=== PATIENT | male | born 1975 | race Caucasian/White ===

== ENCOUNTER → 2018-11-18 | Outpatient (CLI) | payer OTHER ==
--- NOTE | 2018-11-18 11:39 | ECHOF ---
Referral Reason:R07.89chest pain E03.9 Hypothyroidism MEASUREMENTS -------- HEIGHT: 182.9 cm WEIGHT: 144.2 kg BP: RVIDd: 3.5 cm (< 3.3) IVSd: 1.5 cm (0.6 - 1.1) LVIDd: 4.4 cm (3.9 - 5.3) LVPWd: 1.8 cm (0.6 - 1.1) IVSs: 1.9 cm LVIDs: 3.4 cm LVPWs: 1.3 cm LA Diam: 3.9 cm (2.7 - 3.8) LAESV Index (A-L): 26.37 ml/m Ao Diam: 3.7 cm (2.0 - 3.7) AV Cusp: 2.4 cm (1.5 - 2.6) LA Diam: 3.7 cm (2.7 - 3.8) MV EXCURSION: 23.601 mm (> 18.000) MV EF SLOPE: 115 mm/s (70 - 150) EPSS: 0.3 cm MV E Denis: 0.69 m/s MV DecT: 153 ms MV A Denis: 0.74 m/s MV E/A Ratio: 0.94 RAP: 5.00 mmHg RVSP: 21.84 mmHg FINDINGS -------- Sinus rhythm. Morbid Obesity The left ventricular size is normal. There is moderate concentric left ventricular hypertrophy. O verall left ventricular systolic function is low-normal with, an EF between 50 - 55 %. The right ventricle is mild to moderately enlarged. The left atrial size is normal. Normal LA size by volume 22+/-6 ml/m2. The right atrial size is normal. The aortic valve is trileaflet, and appears structurally normal. No aortic stenosis or regurgitation. Mild mitral annular calcification present. Mild mitral regurgitation is present. Mild tricuspid regurgitation present. There is no evidence of pulmonary hypertension. The right v entricular systolic pressure, as measured by Doppler, is 21.84mmHg. There is no pulmonic regurgitation present. The aortic root size is normal. There is no pericardial effusion. CONCLUSIONS -------- 1. Morbid Obesity 2. The left ventricular size is normal. 3. There is moderate concentric left ventricular hypertrophy. 4. Overall left ventricular systolic function is low-normal with, an EF between 50 - 55 %. 5. The right ventricle is mild to moderately enlarged. 6. The left atrial size is normal. 7. Normal LA size by volume 22+/-6 ml/m2. 8. The right atrial size is normal. 9. The aortic valve is trileaflet, and appears structurally normal. No aortic stenosis or regurgitati on. 10. Mild mitral annular calcification present. 11. Mild mitral regurgitation is present. 12. Mild tricuspid regurgitation present. 13. There is no evidence of pulmonary hypertension. 14. The right ventricular systolic pressure, as measured by Doppler, is 21.84mmHg. 15. There is no pulmonic regurgitation present. 16. The aortic root size is normal. 17. There is no pericardial effusion. FLIGHT ENGINEER [employer]ICOPTER: Ashley Jang RDCS
--- NOTE | 2018-11-18 12:53 | NM ---
EXAMINATION TYPE: NM stress cardiolite complete DATE OF EXAM: 11/18/2018 COMPARISON: NONE HISTORY: Precordial chest pain and abnormal EKG TECHNIQUE: After the intravenous administration of 10.05 mCi Tc 99m Sestamibi - Rest images obtained 45 minutes post injection. The patient exercised using a RANDOLPH protocol and 1 minute prior to peak exercise was injected with 26 mCi Tc 99m Sestamibi - Stress images obtained 10 minutes post injectio n. FINDINGS: Targeted heart rate was achieved during performance of the study. Review of stress and rest SPECT viktor ges demonstrates small area of reversible ischemia involving the cardiac septum near the base. Gated analysis shows normal wall motion with an estimated left ventricular ejection fraction of 50 %. IMPRESSION: Small area reversibility ischemia, cardiac septum as noted.
--- NOTE | 2018-11-18 13:37 | EST ---
EXERCISE STRESS DATE OF SERVICE: 11/18/2018 AGE: 43 SEX: Male HT: 6 feet WT: 324 pounds PROTOCOL: Cardiolite Tayo STAGE: III DURATION OF EXERCISE: 9 minutes HEART RATE REST: 88 BLOOD PRESSURE REST: 129/65 MAXIMUM HEART RATE ACHIEVED: 160 MAXIMUM BLOOD PRESSURE: 208/101 85% MPHR: 149 100% MPHR: 175 METS: 10.5 INDICATIONS: Chest pain. CLINICAL INFORMATION: STRESS DATA: Pretesting physical examination showed heart rate of 88, pressure is 129/65 mmHg. Baseline EKG showed sinus mechanism. The patient exercised on treadmill according to Tayo protocol for a total of 9 minutes and achieved 10.5 METs. Max heart rate was 137, which is about 91% of maximum predicted heart rate. Maximum blood pressure was 208/101 mmHg. Clinically the patient did not have any symptoms of chest pain or chest discomfort and the EKG did not show any significant ST or T-wave abnormalities concerning for ischemia. CONCLUSION: 1. Excellent exercise tolerance. 2. Normal EKG in response to exercise. 3. Please follow up on the Cardiolite portion on separate report from Radiology Department. MMODL / IJN: [id number] /
== END ==
LOC: RADNMMAIN 07:46
PROVIDERS: ATTEND Nurse Practitioner Family
DX: I99.8 Other disorder of circulatory system (principal)
CPT/HCPCS: 93017; 93306; 78452; A9500

== ENCOUNTER 2018-11-20 09:45 | Observation (INO) | payer OTHER ==
--- NOTE | 2018-11-20 10:21 | ED ---
General Adult HPI - General Stated complaint: abn stress test Time Seen by Provider: 11/20/18 09:47 Source: patient, RN notes reviewed, old records reviewed Mode of arrival: ambulatory Limitations: no limitations - History of Present Illness Initial comments: 43-year-old male presenting with abnormal outpatient stress test. Patient had complained of some dyspnea, strong family history for coronary artery disease. His primary care physician ordered a stress test which was performed on Sunday. These results were indicated to the physician today and he was sent to the emerg ency department for evaluation. Patient is not complaining of any chest pain or dyspnea at the time my evaluation. Patient is a nonsmoker. No history diabetes. He is currently on lisinopril with history of hypertension. - Related Data Home Medications Medication Instructions Recorded Confirmed Levothyroxine Sodium [Synthroid] 112 mcg PO DAILY 11/20/18 11/20/18 Lisinopril [Zestril] 10 mg PO DAILY 11/20/18 11/20/18 Sertraline [Zoloft] 75 mg PO DAILY 11/20/18 11/20/18 Allergies Allergy/AdvReac Type Severity Reaction Status Date / Time No Known Allergies Allergy Verified 11/20/18 10:48 Review of Systems ROS Statement: Those systems with pertinent positive or pertinent negative responses have been documented in the HPI. ROS Other: All systems not noted in ROS Statement are negative. Past Medical History Past Medical History: Hypertension, Thyroid Disorder History of Any Multi-Drug Resistant Organisms: None Reported Past Surgical History: No Surgical Hx Reported Past Psychological History: No Psychological Hx Reported Smoking Status: Never smoker Past Alcohol Use History: None Reported Past Drug Use History: None Reported General Exam Limitations: no limitations General appearance: alert, in no apparent distress Head exam: Present: atraumatic, normocephalic Eye exam: Present: normal appearance, PERRL ENT exam: Present: normal exam Neck exam: Present: normal inspection. Absent: tenderness, meningismus Respiratory exam: Present: normal lung sounds bilaterally. Absent: respiratory distress, wheezes Cardiovascular Exam: Present: regular rate, normal rhythm GI/Abdominal exam: Present: soft. Absent: distended, tenderness Extremities exam: Present: normal inspection, normal capillary refill. Absent: pedal edema, calf tenderness Neurological exam: Present: alert, oriented X3, CN II-XII intact. Absent: motor sensory deficit Psychiatric exam: Present: normal affect, normal mood Skin exam: Present: warm, dry, intact. Absent: cyanosis, diaphoretic Course Vital Signs 11/20/18 11/20/18 09:48 11:00 Temperature 98.5 F Pulse Rate 84 77 Respiratory 16 18 Rate Blood Pressure 130/84 119/80 O2 Sat by Pulse 97 98 Oximetry EKG Findings - EKG Comments: EKG Findings:: EKG: Normal sinus rhythm, left axis deviation, rate of 81, KS interval 178, QRS duration 108, QTC 432, no ST segment elevation Medical Decision Making - Medical Decision Making 43-year-old male presenting with abnormal stress test. Patient's workup in the emergency department reveals normal CBC, normal CMP, negative initial troponin. Chest x-ray negative for acute cardiopulmonary disease. Case discussed with both Dr. Flynn and Dr. Vora, will initiate aspirin, statin, and heparin. Patient will be kept NPO, with possible heart catheterization today. - Lab Data Result diagrams: 11/20/18 10:14 11/20/18 10:14 Lab Results 11/20/18 11/20/18 11/20/18 Range/Units 10:14 10:14 10:14 WBC 7.9 (3.8-10.6) k/uL RBC 5.55 (4.30-5.90) m/uL Hgb 14.3 (13.0-17.5) gm/dL Hct 44.5 (39.0-53.0) % MCV 80.1 (80.0-100.0) fL MCH 25.8 (25.0-35.0) pg MCHC 32.2 (31.0-37.0) g/dL RDW 14.7 (11.5-15.5) % Plt Count 224 (150-450) k/uL Neutrophils % 73 % Lymphocytes % 16 % Monocytes % 6 % Eosinophils % 4 % Basophils % 0 % Neutrophils # 5.7 (1.3-7.7) k/uL Lymphocytes # 1.3 (1.0-4.8) k/uL Monocytes # 0.5 (0-1.0) k/uL Eosinophils # 0.3 (0-0.7) k/uL Basophils # 0.0 (0-0.2) k/uL PT 10.2 (9.0-12.0) sec INR 0.9 (<1.2) APTT 26.5 (22.0-30.0) sec Sodium 137 (137-145) mmol/L Potassium 4.4 (3.5-5.1) mmol/L Chloride 106 (98-107) mmol/L Carbon Dioxide 23 (22-30) mmol/L Anion Gap 8 mmol/L BUN 20 (9-20) mg/dL Creatinine 0.70 (0.66-1.25) mg/dL Est GFR (CKD-EPI)AfAm >90 (>60 ml/min/1.73 sqM) Est GFR (CKD-EPI)NonAf >90 (>60 ml/min/1.73 sqM) Glucose 112 H (74-99) mg/dL Calcium 9.5 (8.4-10.2) mg/dL Magnesium 1.9 (1.6-2.3) mg/dL Total Bilirubin 0.6 (0.2-1.3) mg/dL AST 20 (17-59) U/L ALT 39 (21-72) U/L Alkaline Phosphatase 68 (38-126) U/L Troponin I (0.000-0.034) ng/mL Total Protein 7.2 (6.3-8.2) g/dL Albumin 4.0 (3.5-5.0) g/dL 11/20/18 Range/Units 10:14 WBC (3.8-10.6) k/uL RBC (4.30-5.90) m/uL Hgb (13.0-17.5) gm/dL Hct (39.0-53.0) % MCV (80.0-100.0) fL MCH (25.0-35.0) pg MCHC (31.0-37.0) g/dL RDW (11.5-15.5) % Plt Count (150-450) k/uL Neutrophils % % Lymphocytes % % Monocytes % % Eosinophils % % Basophils % % Neutrophils # (1.3-7.7) k/uL Lymphocytes # (1.0-4.8) k/uL Monocytes # (0-1.0) k/uL Eosinophils # (0-0.7) k/uL Basophils # (0-0.2) k/uL PT (9.0-12.0) sec INR (<1.2) APTT (22.0-30.0) sec Sodium (137-145) mmol/L Potassium (3.5-5.1) mmol/L Chloride (98-107) mmol/L Carbon Dioxide (22-30) mmol/L Anion Gap mmol/L BUN (9-20) mg/dL Creatinine (0.66-1.25) mg/dL Est GFR (CKD-EPI)AfAm (>60 ml/min/1.73 sqM) Est GFR (CKD-EPI)NonAf (>60 ml/min/1.73 sqM) Glucose (74-99) mg/dL Calcium (8.4-10.2) mg/dL Magnesium (1.6-2.3) mg/dL Total Bilirubin (0.2-1.3) mg/dL AST (17-59) U/L ALT (21-72) U/L Alkaline Phosphatase (38-126) U/L Troponin I <0.012 (0.000-0.034) ng/mL Total Protein (6.3-8.2) g/dL Albumin (3.5-5.0) g/dL Disposition Clinical Impression: Unstable angina pectoris Disposition: ADMITTED IP TO THIS [facility] Condition: Stable Is patient prescribed a controlled substance at d/c from ED?: No Referrals: Gonzalez Carmichael Jr, [Primary Care Provider] - 1-2 days Decision to Admit Reason: Admit from EC Decision Date: 11/20/18 Decision Time: 11:30
--- NOTE | 2018-11-20 10:26 | XR ---
EXAMINATION TYPE: XR chest 1V portable DATE OF EXAM: 11/20/2018 COMPARISON: NONE HISTORY: Failed stress test. Chest pain. TECHNIQUE: Single frontal view of the chest is obtained. FINDINGS: Overlying EKG leads are present. There is chronic parenchymal change without suspicious foc al air space opacity, pleural effusion, or pneumothorax seen. The cardiac silhouette size is within normal limits. The osseous structures are intact. IMPRESSION: No acute process.
[2018-11-20 10:28] LABS: Basophils % (A) 0 %; Eosinophils # (A) 0.3 k/uL (0-0.7); Eosinophils % (A) 4 %; HCT 44.5 % (39.0-53.0); HGB 14.3 gm/dL (13.0-17.5); Lymphocytes # (A) 1.3 k/uL (1.0-4.8); Lymphocytes % (A) 16 %; MCH 25.8 pg (25.0-35.0); MCHC 32.2 g/dL (31.0-37.0); MCV 80.1 fL (80.0-100.0); Mean Platelet Volume 7.2; Monocytes # (A) 0.5 k/uL (0-1.0); Monocytes % (A) 6 %; Neutrophils # (A) 5.7 k/uL (1.3-7.7); Neutrophils % (A) 73 %; Platelet Count 224 k/uL (150-450); RBC 5.55 m/uL (4.30-5.90); RDW 14.7 % (11.5-15.5); WBC 7.9 k/uL (3.8-10.6)
[2018-11-20 10:37] LABS: ALT 39 U/L (21-72); AST 20 U/L (17-59); Alkaline Phosphatase 68 U/L (38-126); Anion Gap 8 mmol/L; Blood Urea Nitrogen 20 mg/dL (9-20); Calcium 9.5 mg/dL (8.4-10.2); Carbon Dioxide 23 mmol/L (22-30); Chloride 106 mmol/L (98-107); Glucose 112 mg/dL (74-99); Magnesium 1.9 mg/dL (1.6-2.3); Potassium 4.4 mmol/L (3.5-5.1); Sodium 137 mmol/L (137-145); Total Bilirubin 0.6 mg/dL (0.2-1.3); Total Protein 7.2 g/dL (6.3-8.2)
[2018-11-20] MEDS ORDERED: ASPIRIN 325 MG TAB PO STA (10:44)
[2018-11-20 10:48] LABS: INR 0.9 (<1.2); Partial Thromboplastin Time 26.5 sec (22.0-30.0); Prothrombin Time 10.2 sec (9.0-12.0)
[2018-11-20] MEDS ORDERED: NALOXONE 0.4 MG/ML 1 ML VIAL IV PRN (11:22)
[2018-11-20] MEDS ORDERED: ACETAMINOPHEN TAB 325 MG TAB PO PRN (11:22)
[2018-11-20] MEDS ORDERED: HEPARIN SODIUM,PORCINE 5,000 UNIT/ML 1 ML VIAL IV ONE (11:26)
[2018-11-20] MEDS ORDERED: HEPARIN SODIUM,PORCINE 5,000 UNIT/ML 1 ML VIAL IV PRN (11:26)
[2018-11-20] MEDS ORDERED: ATORVASTATIN 40 MG TAB PO STA (11:27)
[2018-11-20] MEDS: SODIUM CHLORIDE 0.9% 1,000 ML IV SCH (11:40)
[2018-11-20] MEDS: HEPARIN SOD,PORK IN 0.45% NACL 25,000 UNIT in 0.45% NACL 1 250ML.BAG IV SCH (11:44)
[2018-11-20 12:23] VITALS: BMI 43.4
[2018-11-20] MEDS ORDERED: NITROGLYCERIN SL TABS 0.4 MG TAB SUBLINGUAL PRN (14:31)
[2018-11-20] MEDS ORDERED: SODIUM CHLORIDE 0.9% 1,000 ML in EMPTY BAG 1 BAG IV ONE (14:31)
[2018-11-20] MEDS ORDERED: ALPRAZolam 0.25 MG TAB PO PRN (14:31)
[2018-11-20] MEDS ORDERED: ATORVASTATIN 80 MG TAB PO STA (14:31)
[2018-11-20] MEDS ORDERED: ALPRAZolam 0.5 MG TAB PO PRN (14:31)
--- NOTE | 2018-11-20 15:20 | P.HPIM ---
History of Present Illness H&P Date: 11/20/18 Chief Complaint: Abnormal stress test, shortness of breath,CP History of present illness: this a 43-year-old gentleman with history of hypertension, strong family history of CAD, hypothyroidism, obesity, anxiety, GI bleed and multiple other medical issues. Underwent stress test on Sunday . Abnormal stress test results reported to PCP who further directed patient to the ER .Patient reports ongoing shortness of breath over the last month, which he attributed to anxiety . Shortness of breath recently worsened, accompanied by midsternal chest pressure.EKG reporting normal sinus rhythm, left axis deviation, inferior infarct, age undetermined-further evaluation by cardiology pending . Troponins negative 1.Chest x-ray nonacute. Aspirin, statin, heparin initiated. Remains nothing by mouth for potential cardiac catheterization. Review of Systems Review of systems: CONSTITUTIONAL: No fever, no malaise, no fatigue. HEENT: No recent visual problems or hearing problems. Denied any sore throat. CARDIOVASCULAR: Midsternal chest pressure, no palpitations, no syncope. PULMONARY:shortness of breath, no cough, no hemoptysis. GASTROINTESTINAL: No diarrhea, no nausea, no vomiting, no abdominal pain. Normoactive bowel sounds. NEUROLOGICAL: No headaches, no weakness, no numbness. HEMATOLOGICAL: Denies any bleeding or petechiae. GENITOURINARY: Denies any burning micturition, frequency, or urgency. MUSCULOSKELETAL/RHEUMATOLOGICAL: Denies any joint pain, swelling, or any muscle pain. ENDOCRINE: Denies any polyuria or polydipsia. PSYCHIATRIC: No anxiety, no depression The rest of the 14 point review of systems is negative Past Medical History Past Medical History: GI Bleed, Hypertension, Thyroid Disorder Additional Past Medical History / Comment(s): PUD, hypothyroid. History of Any Multi-Drug Resistant Organisms: None Reported Past Surgical History: Bariatric Surgery Additional Past Surgical History / Comment(s): EGD, lap band with replacement. Past Anesthesia/Blood Transfusion Reactions: No Reported Reaction Additional Past Anesthesia/Blood Transfusion Reaction / Comment(s): Pt received blood in past (d/t ulcer) without reaction Past Psychological History: Anxiety Additional Psychological History / Comment(s): Pt reside with his spouse and 4 children. He is independent. 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 Smoking Status: Never smoker Past Alcohol Use History: None Reported Past Drug Use History: None Reported - Past Family History Father Family Medical History: Coronary Artery Disease (CAD) Additional Family Medical History / Comment(s): Father had cardiac stents. Pt's paternal uncle also has cardiac stents. Mother Family Medical History: COPD Brother(s) Family Medical History: Myocardial Infarction (AK) Additional Family Medical History / Comment(s): Brother recently had a AK at the age of 48yrs. Medications and Allergies Home Medications Medication Instructions Recorded Confirmed Type Levothyroxine Sodium [Synthroid] 112 mcg PO DAILY 11/20/18 11/20/18 History Lisinopril [Zestril] 10 mg PO DAILY 11/20/18 11/20/18 History Sertraline [Zoloft] 75 mg PO DAILY 11/20/18 11/20/18 History Allergies Allergy/AdvReac Type Severity Reaction Status Date / Time No Known Allergies Allergy Verified 11/20/18 10:48 Physical Exam Vitals: Vital Signs Temp Pulse Pulse Resp BP BP Pulse Ox 11/20/18 13:00 97.8 F 71 72 18 114/70 136/87 97 11/20/18 11:00 77 18 119/80 98 11/20/18 09:48 98.5 F 84 16 130/84 97 Intake and Output 11/19/18 11/20/18 11/20/18 22:59 06:59 14:59 Other: Weight 145.15 kg PHYSICAL EXAM: VITAL SIGNS: As above GENERAL: Sitting up in bed, no acute distress HEENT: Conjunctivae normal. eyes normal. NECK: No JVD. No thyroid enlargement. No LNs CARDIOVASCULAR: S1, S2 regular. No murmur, rub or gallop RESPIRATION: Breath sounds diminished in the bases. No rhonchi or crackles. No bronchial breathing. ABDOMEN: Soft, nontender . No guarding. no masses palpable.Bowel sounds heard. LEGS: No edema. no swelling PSYCHIATRY: Alert and oriented -3, mood and affect normal. NERVOUS SYSTEM: Cranial N 2-12 grossly normal. Moves all 4 limbs. Diffuse weakness No focal deficits. No sensory deficit. Skin: no lesions, no rash Joints: No active swelling. No inflammation. Lymphatic system. No LN neck axilla or groin. Results CBC & Chem 7: 11/20/18 10:14 11/20/18 10:14 Labs: Abnormal Lab Results - Last 24 Hours (Table) 11/20/18 Range/Units 10:14 Glucose 112 H (74-99) mg/dL Thrombosis Risk Factor Assmnt - Choose All That Apply Any of the Below Risk Factors Present?: Yes Each Factor Represents 1 point: Age 41-60 years, Obesity (BMI >25) Other Risk Factors: No Other congenital or acquired thrombophilia - If yes, enter type in comment: No Thrombosis Risk Factor Assessment Total Risk Factor Score: 2 Thrombosis Risk Factor Assessment Level: Low Risk Assessment and Plan Assessment: -Chest pain, accompanied by shortness of breath, reported abnormal recent stress test in a patient with strong family history of CAD. Cardiology consulted, evaluation pending. Potential cardiac cath. -Hypertension -Morbid obesity, BMI 43.4 -Hypothyroidism -Anxiety,Depression -History of GI bleed Plan: Continue on current medication regime ,monitoring and symptomatic treatment. Patient to remain NPO for potential cardiac catheterization pending cardiology evaluation. Maintain heparin drip, statin, aspirin, ntg. Family at bedside; patient and family updated on plan of care including potential cardiac catheterization. Questions and concerns addressed. Home medications have been reviewed /resumed. Further recommendations to follow. The impression and plan of care has been dictated as directed. : I performed a history and examination of this patient, discussed the same with the dictator. I agree with the dictator's note ,documented as a scribe. Any additional findings or plans will be noted. Time taken: 35 minutes
[2018-11-20] MEDS: PANTOPRAZOLE 40 MG/10 ML VIAL IVP SCH (17:54)
[2018-11-21] MEDS: SODIUM CHLORIDE 0.9% 1,000 ML IV SCH (02:41)
[2018-11-21] MEDS: HEPARIN SOD,PORK IN 0.45% NACL 25,000 UNIT in 0.45% NACL 1 250ML.BAG IV SCH (05:13)
[2018-11-21] MEDS: PANTOPRAZOLE 40 MG/10 ML VIAL IVP SCH (05:16)
[2018-11-21] MEDS ORDERED: LEVOTHYROXINE 112 MCG TAB PO SCH (06:30)
[2018-11-21 08:02] VITALS: PULSE 60
[2018-11-21] MEDS ORDERED: ASPIRIN 325 MG TAB PO SCH (09:00)
[2018-11-21] MEDS ORDERED: LISINOPRIL 10 MG TAB PO SCH (09:00)
[2018-11-21] MEDS ORDERED: SERTRALINE 25 MG TAB PO SCH (09:00)
[2018-11-21] MEDS ORDERED: ATORVASTATIN 40 MG TAB PO SCH (09:00)
[2018-11-21 09:38] LABS: Basophils % (A) 1 %; Eosinophils # (A) 0.3 k/uL (0-0.7); Eosinophils % (A) 5 %; HCT 45.5 % (39.0-53.0); HGB 14.4 gm/dL (13.0-17.5); Hypochromasia Slight; Lymphocytes # (A) 1.1 k/uL (1.0-4.8); Lymphocytes % (A) 18 %; MCH 26.2 pg (25.0-35.0); MCHC 31.6 g/dL (31.0-37.0); MCV 82.8 fL (80.0-100.0); Mean Platelet Volume 7.5; Monocytes # (A) 0.4 k/uL (0-1.0); Monocytes % (A) 6 %; Neutrophils # (A) 4.1 k/uL (1.3-7.7); Neutrophils % (A) 68 %; Platelet Count 207 k/uL (150-450); RDW 14.7 % (11.5-15.5); WBC 6.1 k/uL (3.8-10.6)
[2018-11-21 10:11] LABS: Blood Urea Nitrogen 12 mg/dL (9-20); Calcium 8.7 mg/dL (8.4-10.2); Chloride 107 mmol/L (98-107); Glucose 108 mg/dL (74-99); Potassium 4.8 mmol/L (3.5-5.1); Sodium 139 mmol/L (137-145)
[2018-11-21] MEDS ORDERED: IV FLUID CONTINUATION 1,000 ML IV ONE (10:35)
[2018-11-21] MEDS ORDERED: fentaNYL (PF) 50 MCG/ML 2 ML AMP IV ONE (10:56)
[2018-11-21] MEDS ORDERED: MIDAZOLAM 2 MG/2 ML VIAL IV ONE (10:57)
[2018-11-21] MEDS ORDERED: LIDOCAINE 1% INJ 10MG/ML (20 ML MDV) SQ ONE (10:58)
[2018-11-21] MEDS ORDERED: METOPROLOL TARTRATE 5 MG/5 ML VIAL IVP ONE (10:58)
[2018-11-21] MEDS ORDERED: SODIUM CHLORIDE 0.9% 1,000 ML IV ONE (11:03)
[2018-11-21 11:05] LABS: Anion Gap 9 mmol/L; Carbon Dioxide 23 mmol/L (22-30)
[2018-11-21] MEDS ORDERED: NITROGLYCERIN SL TABS 0.4 MG TAB SUBLINGUAL ONE (11:07)
[2018-11-21] MEDS ORDERED: IOPAMIDOL-370 150ML BTL INJ ONE (11:16)
--- NOTE | 2018-11-21 11:21 | P.CRDCN ---
History of Present Illness History of present illness: This is Dr. Vora dictating a consult on this patient The patient was interviewed and examined by me yesterday I'm dictating this on the . He was seen in the emergency room by me IMPRESSION / ASSESSMENT: This is Dr. Vora dictating a consult on this patient The patient was interviewed and examined by me PLAN: Start aspirin, heparin, statins, lipid panel, arrange for coronary angiography tomorrow the with Dr. VC Castañeda. I spoke to Dr. VC Castañeda Patient is stable he has not had any rest discomfort at all his symptoms are exertional and is had an abnormal stress test HPI Patient was referred by Dr. Carmichael. He called me about this patient who had been complaining of shortness of breath on exertion as well as some exertional midsternal chest pressure When I saw him he was resting comfortably in bed completely pain-free. 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 This been a gradually progressive problem but he also has been experiencing some heaviness or tightness in the chest with exertion His first troponin was normal. He was started on atorvastatin and aspirin and IV heparin Few days back he had had a stress test which is available to Dr. Carmichael and this was abnormal and this is what initiated the call ROS: No fever chills or rigors, no cough, phlegm or expectoration, no nausea, vomiting or diarrhea, no hematuria, dysuria, no musculoskeletal complaints, no strokes or seizures, no skin lesions. EXAMINATION: Afebrile respirations normal blood pressure 121/74 mmHg Abdomen soft nontender Extremities warm no edema Breath sounds are clear no rhonchi no crackles Heart sounds S1 and S2 normal no murmurs or gallops no rub No JVD Increased BMI of 43 REVIEW OF LABS, ECG & MEDICAL DATA Hemoglobin 14.4, sodium 139, potassium 4.8 BUN 12 creatinine 0.73 Troponins normal 3 Twelve-lead ECG shows sinus rhythm normal ME narrow QRS normal ST segments flattening of the T waves in lead 3 Past Medical History Past Medical History: GI Bleed, Hypertension, Thyroid Disorder Additional Past Medical History / Comment(s): PUD, hypothyroid. History of Any Multi-Drug Resistant Organisms: None Reported Past Surgical History: Bariatric Surgery Additional Past Surgical History / Comment(s): EGD, lap band with replacement. Past Anesthesia/Blood Transfusion Reactions: No Reported Reaction Additional Past Anesthesia/Blood Transfusion Reaction / Comment(s): Pt received blood in past (d/t ulcer) without reaction Past Psychological History: Anxiety Additional Psychological History / Comment(s): Pt reside with his spouse and 4 children. He is independent. He works at [employer] on midnights in [employer]. Smoking Status: Never smoker Past Alcohol Use History: None Reported Past Drug Use History: None Reported - Past Family History Father Family Medical History: Coronary Artery Disease (CAD) Additional Family Medical History / Comment(s): Father had cardiac stents. Pt's paternal uncle also has cardiac stents. Mother Family Medical History: COPD Brother(s) Family Medical History: Myocardial Infarction (OH) Additional Family Medical History / Comment(s): Brother recently had a OH at the age of 48yrs. Medications and Allergies Home Medications Medication Instructions Recorded Confirmed Type Levothyroxine Sodium [Synthroid] 112 mcg PO DAILY 11/20/18 11/20/18 History Lisinopril [Zestril] 10 mg PO DAILY 11/20/18 11/20/18 History Sertraline [Zoloft] 75 mg PO DAILY 11/20/18 11/20/18 History Allergies Allergy/AdvReac Type Severity Reaction Status Date / Time No Known Allergies Allergy Verified 11/20/18 10:48 Physical Exam Vitals: Vital Signs Temp Pulse Pulse Pulse Resp BP BP 11/21/18 08:00 97.6 F 60 18 11/21/18 05:42 121/74 11/21/18 03:53 97.3 F L 63 16 98/60 11/21/18 03:18 15 11/21/18 03:14 97.3 F L 63 16 98/68 11/21/18 00:00 98.0 F 67 15 132/74 11/20/18 20:00 15 11/20/18 19:07 98.0 F 77 15 110/68 11/20/18 15:52 98.1 F 67 18 133/78 11/20/18 15:50 11/20/18 13:00 97.8 F 71 72 18 114/70 136/87 BP Pulse Ox 11/21/18 08:00 105/65 96 11/21/18 05:42 11/21/18 03:53 98 11/21/18 03:18 11/21/18 03:14 98 11/21/18 00:00 98 11/20/18 20:00 11/20/18 19:07 98 11/20/18 15:52 97 11/20/18 15:50 97 11/20/18 13:00 97 Intake and Output 11/20/18 11/21/18 11/21/18 22:59 06:59 14:59 Intake Total 266.827 169.055 175 Balance 266.827 169.055 175 Intake: IV 175 Intake, IV Titration 66.827 169.055 Amount Heparin Sod,Pork in 0.45% 66.827 169.055 NaCl 25,000 unit In 0.45 % NaCl 1 250ml.bag @ 6. 889 UNITS/KG/HR 9.999 mls /hr IV .Q24H [facility] Rx#: [id number] Oral 200 Other: Voiding Method Toilet Toilet Toilet # Voids 2 2 Results 11/21/18 08:45 11/21/18 08:45 Cardiac Enzymes 11/20/18 11/20/18 Range/Units 17:32 23:11 Troponin I <0.012 <0.012 (0.000-0.034) ng/mL Coagulation 11/20/18 11/20/18 11/21/18 Range/Units 17:32 23:11 08:45 APTT 28.3 34.7 H 32.2 H (22.0-30.0) sec CBC 11/21/18 Range/Units 08:45 WBC 6.1 (3.8-10.6) k/uL RBC 5.50 (4.30-5.90) m/uL Hgb 14.4 (13.0-17.5) gm/dL Hct 45.5 (39.0-53.0) % Plt Count 207 (150-450) k/uL Comprehensive Metabolic Panel 11/21/18 Range/Units 08:45 Sodium 139 (137-145) mmol/L Potassium 4.8 (3.5-5.1) mmol/L Chloride 107 (98-107) mmol/L Carbon Dioxide 23 (22-30) mmol/L BUN 12 (9-20) mg/dL Creatinine 0.73 (0.66-1.25) mg/dL Glucose 108 H (74-99) mg/dL Calcium 8.7 (8.4-10.2) mg/dL Current Medications Generic Name Dose Route Start Last Admin Trade Name Freq PRN Reason Stop Dose Admin Acetaminophen 650 mg 11/20/18 11:22 Tylenol Tab PO Q6HR PRN Mild Pain or Fever > 100.5 Alprazolam 0.25 mg 11/20/18 14:31 Xanax PO Q6HR PRN Mild Anxiety Alprazolam 0.5 mg 11/20/18 14:31 Xanax PO Q6HR PRN Moderate Anxiety Aspirin 325 mg 11/21/18 09:00 11/21/18 05:15 Aspirin PO 325 mg DAILY [facility] Administration Atorvastatin Calcium 40 mg 11/21/18 09:00 11/21/18 05:15 Lipitor PO 40 mg DAILY [facility] Administration Heparin Sodium (Porcine) 0 unit 11/20/18 11:26 11/21/18 00:34 Heparin IV 4,000 unit PER PROTOCOL PRN Administration Low PTT Protocol Sodium Chloride 1,000 mls @ 75 mls/hr 11/20/18 11:30 11/21/18 02:41 Saline 0.9% IV Not Given .[id number] [facility] Heparin Sodium/Sodium Chloride 250 mls @ 9.999 mls/hr 11/20/18 11:30 11/21/18 05:13 25,000 unit/ Sodium Chloride IV 11.95 units/kg/hr .Q24H [facility] 17.35 mls/hr Administration Protocol 6.889 UNITS/KG/HR Levothyroxine Sodium 112 mcg 11/21/18 06:30 11/21/18 05:15 Synthroid PO 112 mcg DAILY@0630 [facility] Administration Lisinopril 10 mg 11/21/18 09:00 11/21/18 05:16 Zestril PO 10 mg DAILY [facility] Administration Naloxone HCl 0.2 mg 11/20/18 11:22 Narcan IV Q2M PRN Opioid Reversal Nitroglycerin 0.4 mg 11/20/18 14:31 Nitrostat SUBLINGUAL Q5M PRN Chest Pain Pantoprazole Sodium 40 mg 11/20/18 15:30 11/21/18 05:16 Protonix IVP 40 mg DAILY [facility] Administration Sertraline HCl 75 mg 11/21/18 09:00 11/21/18 05:15 Zoloft PO 75 mg DAILY [facility] Administration Intake and Output 11/20/18 11/21/18 11/21/18 22:59 06:59 14:59 Intake Total 266.827 169.055 175 Balance 266.827 169.055 175 Intake: IV 175 Intake, IV Titration 66.827 169.055 Amount Heparin Sod,Pork in 0.45% 66.827 169.055 NaCl 25,000 unit In 0.45 % NaCl 1 250ml.bag @ 6. 889 UNITS/KG/HR 9.999 mls /hr IV .Q24H [facility] Rx#: [id number] Oral 200 Other: Voiding Method Toilet Toilet Toilet # Voids 2 2 11/21/18 08:45 11/21/18 08:45
--- NOTE | 2018-11-21 12:01 | CC ---
CARDIAC CATHETERIZATION REPORT This patient was admitted with the symptoms of exertional shortness of breath and positive stress test. In view of that, the patient was advised cardiac catheterization for definitive diagnosis. PROCEDURE: The right groin was prepped and draped in the usual manner and the skin was infiltrated with 2% Xylocaine. The right femoral artery was entered under ultrasound guidance and a micropuncture needle, a #6-Yakut sheath was placed in. Selective coronary angiography was then performed in multiple projections and the left ventricular pressures were obtained. Sedation time was 17 minutes. HEMODYNAMICS: Left ventricular end-diastolic pressure is 8-10 mmHg prior to angiography. No gradient is noted across the aortic wall. SELECTIVE CORONARY ANGIOGRAPHY: Left main coronary artery is normal and patent. Circumflex coronary artery is a good caliber blood vessel. It is a codominant in distribution and gives rise to two good size obtuse marginal branches. Circumflex coronary artery and its branches are normal. Left anterior descending artery is a good caliber blood vessel and gives rise to a good size diagonal branch. LAD and its branches are normal. Right coronary artery is normal caliber blood vessel, dominant in distribution and gives rise to the posterior descending artery. The right coronary artery and its branches are normal. FINAL IMPRESSION: This study reveals normal coronary arteries. Left ventricular end-diastolic pressure is normal. RECOMMENDATIONS: Medical treatment and risk factor modification. MMODL / IJN: [id number] /
[2018-11-21] MEDS ORDERED: RX INFO: IV CONTRAST WAS GIVEN 1 EACH MISC MISCELLANE PRN (12:16)
[2018-11-21 13:50] LABS: Cholesterol 161 mg/dL (<200); HDL Cholesterol 37 mg/dL (40-60); LDL Cholesterol,Calculated 103 mg/dL (0-99); Triglycerides 105 mg/dL (<150)
[2018-11-21 14:29] VITALS: RESP 18
[2018-11-21 15:22] VITALS: BP 141/82; TEMP 98.6
--- NOTE | 2018-11-21 15:43 | P.DS ---
Providers Date of admission: 11/20/18 11:22 Expected date of discharge: 11/21/18 Attending physician: Fredrick Flynn Consults: 11/20/18 11:23 Consult Physician Routine Consulting Provider: Jefe Vora Consult Reason/Comments: Abnormal stress test, concern for coronary artery disease Do you want consulting provider notified?: Already Contacted Primary care physician: [facility] Course: Final Diagnoses: -Chest pain, accompanied by shortness of breath, reported abnormal recent stress test in a patient with strong family history of CAD. Status post cardiac cath reporting normal coronary arteries. Lipid panel pending -Hypertension -Morbid obesity, BMI 43.4 -Hypothyroidism -Anxiety,Depression -History of GI bleed Hospital course:this is a 43-year-old gentleman with history of hypertension, strong family history of CAD, hypothyroidism, obesity, anxiety, GI bleed and multiple other medical issues. Underwent stress test on Sunday . Abnormal str ess test results reported to PCP who further directed patient to the ER .Patient reports ongoing shortness of breath over the last month, which he attributed to anxiety . Shortness of breath recently worsened, accompanied by midsternal chest pressure.EKG reporting normal sinus rhythm, left axis deviation, inferior infarct, age undetermined-further evaluation by cardiology pending . Troponins negative 1.Chest x-ray nonacute. Aspirin, statin, heparin initiated. Remains nothing by mouth for potential cardiac catheterization Troponins negative 3. Chest pain free, denies shortness of breath, lightheadedness dizziness or focal deficits. Evaluated by cardiology, underwent cardiac catheterization reporting normal coronary arteries. Lipid panel ordered, final results pending. Patient has been cleared for discharge by cardiology after post cath restrictions lifted. Patient will be discharged home in a stable condition with guarded prognosis. EXAM: GENERAL: Alert and oriented 3, no acute distress CARDIOVASCULAR: S1, S2 regular. No murmur, rub or gallop RESPIRATION: Breath sounds diminished in the bases. No rhonchi or crackles. No wheezing. ABDOMEN: Soft, nontender . No guarding. no masses palpable.Bowel sounds heard. NERVOUS SYSTEM: No focal deficits. The impression and plan of care has been dictated as directed. : I performed a history and examination of this patient, discussed the same with the dictator. I agree with the dictator's note ,documented as a scribe. Any additional findings or plans will be noted. Time taken: 35 minutes Patient Condition at Discharge: Stable Plan - Discharge Summary Discharge Rx Participant: No New Discharge Prescriptions: Continue Sertraline [Zoloft] 75 mg PO DAILY Lisinopril [Zestril] 10 mg PO DAILY Levothyroxine Sodium [Synthroid] 112 mcg PO DAILY Discharge Medication List Levothyroxine Sodium [Synthroid] 112 mcg PO DAILY 11/20/18 [History] Lisinopril [Zestril] 10 mg PO DAILY 11/20/18 [History] Sertraline [Zoloft] 75 mg PO DAILY 11/20/18 [History] Follow up Appointment(s)/Referral(s): Jefe Vora MD [STAFF PHYSICIAN] - 1 Week (Follow-up with Dr. Paz/Jennifer Dudley. Office will call the patient with date and time for appoinment.) Gonzalez Carmichael Jr, DO [Primary Care Provider] - 3 Days Patient Instructions/Handouts: Heart Catheterization (DC) Activity/Diet/Wound Care/Special Instructions: Lipid panel pending
[2018-11-22] MEDS ORDERED: PANTOPRAZOLE 40 MG TABLET PO SCH (07:30)
== END 2018-11-21 19:14 | disposition home or self-care (01) ==
LOC: EC 09:45 → OBSVTOIN 11:22 → INTOOBSV 11:22 → 1SOBS 11:22 → OBSVTOIN 11-21 11:25 → INTOOBSV 11-21 11:25 → UNDODISIN 11-21 19:14
PROVIDERS: ADMIT Family Medicine; ATTEND Family Medicine
PROC: 4A023N7 Measurement of Cardiac Sampling and Pressure, Left Heart, Percutaneous Approach (ICD-10-PCS; principal; 2018-11-21 10:30)
PROC: B2111ZZ Fluoroscopy of Multiple Coronary Arteries using Low Osmolar Contrast (ICD-10-PCS; 2018-11-21 10:30)
DX: R07.9 Chest pain, unspecified (principal); R94.39 Abnormal result of other cardiovascular function study; R06.02 Shortness of breath; I10 Essential (primary) hypertension; E03.9 Hypothyroidism, unspecified; F41.9 Anxiety disorder, unspecified; F32.9 Major depressive disorder, single episode, unspecified; Z79.890 Hormone replacement therapy; E66.01 Morbid (severe) obesity due to excess calories; Z68.41 Body mass index [BMI] 40.0-44.9, adult; Z79.899 Other long term (current) drug therapy; Z87.19 Personal history of other diseases of the digestive system; Z87.11 Personal history of peptic ulcer disease; Z98.84 Bariatric surgery status; Z82.49 Family history of ischemic heart disease and other diseases of the circulatory system; Z82.5 Family history of asthma and other chronic lower respiratory diseases
CPT/HCPCS: 96366 ×2; 96376; 96365; 99285; 36415; 93005; 93458; 76937; 80061; 80053; 80048; 83735; 84484; 85025 ×2; 85610; 85730 ×2; 71045; G0378 ×3; C1760; C1894; C1769 ×2; J2250; J1644 ×4; J2001; J3010; C9113 ×2; Q9967

== ENCOUNTER → 2020-02-17 | Outpatient (CLI) | payer OTHER ==
--- NOTE | 2020-02-17 16:52 | XR ---
EXAMINATION TYPE: XR knee complete RT DATE OF EXAM: 02/17/2020 COMPARISON: NONE HISTORY: 44-year-old male M25.561, right knee pain TECHNIQUE: 3 views FINDINGS: Tricompartmental degenerative spurring. Suspected greater degree of joint space narrowing in the cervantes llofemoral compartment. Weightbearing view could better assess the degree of cartilage and joint spac e loss in the medial and lateral compartments. There may be a small underlying knee joint effusion. S oft tissue protuberance along the anterior suprapatellar region may relate to patient body habitus. N o acute fracture, subluxation, dislocation. 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 Weightbearing view co uld better assess cartilage and joint space narrowing in the medial and lateral compartments. Anterio r suprapatellar soft tissue protuberance may relate to patient body habitus. MRI if there is any palp able abnormality or if there is concern for injury to the extensor mechanism.
== END | disposition home or self-care (01) ==
LOC: RADXRMAIN 12:17
PROVIDERS: ATTEND Family Medicine
DX: M17.11 Unilateral primary osteoarthritis, right knee (principal)

== ENCOUNTER → 2021-05-15 | Outpatient (CLI) | payer OTHER | END | disposition home or self-care (01) | LOC: LABWHC1 16:40 | PROVIDERS: ATTEND Emergency Medicine | DX: Z20.822 Contact with and (suspected) exposure to COVID-19 (principal) | CPT/HCPCS: 87635 ==

== ENCOUNTER 2022-09-12 14:51 | Emergency (ER) | payer OTHER ==
[2022-09-12 15:06] VITALS: TEMP 97.1
[2022-09-12] MEDS ORDERED: IOPAMIDOL CONTRAST (ORAL USE) VIAL PO PRN (15:07)
--- NOTE | 2022-09-12 15:09 | ED ---
Abdominal Pain HPI - General Source: patient, RN notes reviewed Mode of arrival: ambulatory Limitations: no limitations <Leonardo Farah - Last Filed: 09/12/22 15:08> <Chayo Cordero - Last Filed: 09/12/22 23:48> - General Chief Complaint: Abdominal Pain Stated Complaint: abd pain Time Seen by Provider: 09/12/22 15:08 - History of Present Illness Initial Comments: 47-year-old male presents emergency Department chief complaint of left upper abdominal pain. Patient states that he has history of LAP-BAND surgery by Dr. lynn. Patient states has not followed up with this in several years. Patient states that he has sharp stabbing type pain in his abdomen denies any chest pain or shortness of breath. Patient states he feels like anything he eats recently gets stuck or has difficulty he does admit to nausea and vomiting. (Leonardo Farah) Patient is a 47-year-old male presenting with chief complaint of abdominal pain. Pain is located in the left upper quadrant. It is located over the port of his LAP-BAND. Patient had gastric sleeve surgery performed by Dr. Castro several years ago. He states that the pain is been ongoing for the last 4 days. Pain is worse after eating and he admits to nausea and vomiting. He denies any fever or chills. No chest pain or difficulty breathing. No diarrhea, hematochezia, melena. No palpitations or weakness. (Chayo Cordero) - Related Data Home Medications Medication Instructions Recorded Confirmed Sertraline [Zoloft] 75 mg PO DAILY 11/20/18 09/12/22 lisinopriL [Zestril] 10 mg PO DAILY 11/20/18 09/12/22 Atorvastatin Calcium 20 mg PO HS 09/12/22 09/12/22 Levothyroxine Sodium [Synthroid] 150 mcg PO DAILY 09/12/22 09/12/22 Meloxicam [Mobic] 7.5 mg PO HS 09/12/22 09/12/22 Previous Rx's Medication Instructions Recorded Omeprazole 20 mg PO DAILY #10 tab 09/12/22 Allergies Allergy/AdvReac Type Severity Reaction Status Date / Time No Known Allergies Allergy Verified 09/12/22 16:55 Review of Systems ROS Other: All systems not noted in ROS Statement are negative. <Leonardo Farah - Last Filed: 09/12/22 15:08> ROS Other: All systems not noted in ROS Statement are negative. <Chayo Cordero - Last Filed: 09/12/22 23:48> ROS Statement: Those systems with pertinent positive or pertinent negative responses have been documented in the HPI. Past Medical History Past Medical History: GI Bleed, Hypertension, Thyroid Disorder Additional Past Medical History / Comment(s): PUD, hypothyroid. History of Any Multi-Drug Resistant Organisms: None Reported Past Surgical History: Bariatric Surgery Additional Past Surgical History / Comment(s): EGD, lap band with replacement. Past Anesthesia/Blood Transfusion Reactions: No Reported Reaction Additional Past Anesthesia/Blood Transfusion Reaction / Comment(s): Pt received blood in past (d/t ulcer) without reaction Past Psychological History: Anxiety Smoking Status: Never smoker Past Alcohol Use History: None Reported Past Drug Use History: None Reported - Past Family History Father Family Medical History: Coronary Artery Disease (CAD) Additional Family Medical History / Comment(s): Father had cardiac stents. Pt's paternal uncle also has cardiac stents. Mother Family Medical History: COPD Brother(s) Family Medical History: Myocardial Infarction ([place]) Additional Family Medical History / Comment(s): Brother recently had a [place] at the age of 48yrs. <GaganLeonardo Ruelas - Last Filed: 09/12/22 15:08> General Exam Limitations: no limitations <GaganLeonardo Ruelas - Last Filed: 09/12/22 15:08> Limitations: no limitations General appearance: alert, in no apparent distress Head exam: Present: atraumatic, normocephalic, normal inspection Eye exam: Present: normal appearance Neck exam: Present: normal inspection, full ROM Respiratory exam: Present: normal lung sounds bilaterally. Absent: respiratory distress, wheezes, rales, rhonchi, stridor Cardiovascular Exam: Present: regular rate, normal rhythm, normal heart sounds. Absent: systolic murmur, diastolic murmur, rubs, gallop, clicks GI/Abdominal exam: Present: soft, tenderness (LUQ). Absent: distended, guarding, rebound, rigid Neurological exam: Present: alert, oriented X3, CN II-XII intact Psychiatric exam: Present: normal affect, normal mood Skin exam: Present: warm, dry, intact, normal color. Absent: rash <Chayo Cordero - Last Filed: 09/12/22 23:48> Course Vital Signs 09/12/22 09/12/22 09/12/22 15:02 17:30 18:00 Temperature 97.1 F L Pulse Rate 94 86 85 Respiratory 16 18 18 Rate Blood Pressure 165/114 155/100 132/88 O2 Sat by Pulse 99 96 96 Oximetry 09/12/22 18:30 Temperature Pulse Rate 86 Respiratory 18 Rate Blood Pressure 140/94 O2 Sat by Pulse 95 Oximetry Medical Decision Making - Lab Data Result diagrams: 09/12/22 16:09 09/12/22 16:09 <Chayo Cordero - Last Filed: 09/12/22 23:48> - Medical Decision Making Was pt. sent in by a medical professional or institution (Dr. PA, DIGITAL MARKETING ASSISTANT, urgent care, hospital, or half-way...) When possible be specific @ -No Did you speak to anyone other than the patient for history (EMS, parent, family, police, friend...)? What history was obtained from this source @ -No Did you review nursing and triage notes (agree or disagree)? Why? @ -I reviewed and agree with nursing and triage notes Were old charts reviewed (outside hosp., previous admission, EMS record, old EKG, old radiological studies, urgent care reports/EKG's, half-way records)? Report findings @ -No old charts were reviewed Differential Diagnosis (chest pain, altered mental status, abdominal pain women, abdominal pain men, vaginal bleeding, weakness, fever, dyspnea, syncope, headache, dizziness, GI bleed, back pain, seizure, CVA, palpatations, mental health)? @ -[facility] Differential Abdominal Pain Men: Appendicitis, cholecystitis, diverticulosis, ischemic bowel, pancreatitis, hepatitis, UTI, gastroenteritis, incarcerated hernia, bowel obstruction, constipation, inflammatory bowel, hepatitis, peptic ulcer disease, splenic infarction, perforated viscus... This is not meant to be an all-inclusive list EKG interpreted by me (3pts min.). @ -As above X-rays interpreted by me (1pt min.). @ -None done CT interpreted by me (1pt min.). @ -No, radiologist report is reviewed. No acute intra-abdominal process to account for the patient's symptoms U/S interpreted by me (1pt. min.). @ -None done What testing was considered but not performed or refused? (CT, X-rays, U/S, labs)? Why? @ -None What meds were considered but not given or refused? Why? @ -None Did you discuss the management of the patient with other professionals (professionals i.e. Dr., PA, DIGITAL MARKETING ASSISTANT, lab, RT, psych nurse, school social worker, manager implementation, teacher, transit police officer, employment evaluator/case manager)? Give summary @ -No Was smoking cessation discussed for >3mins.? @ -No Was critical care preformed (if so, how long)? @ -No Were there social determinants of health that impacted care today? How? (Homelessness, low income, unemployed, alcoholism, drug addiction, transportation, low edu. Level, literacy, decrease access to med. care, nursing home, rehab)? @ -No Was there de-escalation of care discussed even if they declined (Discuss DNR or withdrawal of care, Hospice)? DNR status @ -No What co-morbidities impacted this encounter? (DM, HTN, Smoking, COPD, CAD, Cancer, CVA, ARF, Chemo, Hep., AIDS, mental health diagnosis, sleep apnea, morbid obesity)? @ -None Was patient admitted / discharged? Hospital course, mention meds given and route, prescriptions, significant lab abnormalities, going to OR and other pertinent info. @ -Patient is a 47-year-old male presenting with chief complaint of left upper quadrant pain, located primarily over the site of his port from his lap band surgery performed several years ago by Dr. Castro. On physical examination there is some tenderness to the left upper quadrant. Lab work is essentially unremarkable. EKG shows no scheming changes. CT of the abdomen and pelvis shows no acute findings. I spoke with general surgeon on-call Dr. Salmeron, he suggested that the patient report to the bariatric center in the morning. Patient is educated on these findings and on the plan. Provided with pain and nausea medication for home. Follow-up with PCP. Report back to ER with any new or worsening symptoms. Discussed return parameters and answered all questions. Patient conveyed verbal understanding and agreed to the plan. I discussed this case in detail with my attending Dr. Floyd Undiagnosed new problem with uncertain prognosis? @ -No Drug Therapy requiring intensive monitoring for toxicity (Heparin, Nitro, Insulin, Cardizem)? @ -No Were any procedures done? @ -No Diagnosis/symptom? @ -Abdominal pain Acute, or Chronic, or Acute on Chronic? @ -Acute Uncomplicated (without systemic symptoms) or Complicated (systemic symptoms)? @ -Uncomplicated Side effects of treatment? @ -No Exacerbation, Progression, or Severe Exacerbation? @ -No (Chayo Cordero) - Lab Data Lab Results 09/12/22 09/12/22 09/12/22 Range/Units 16:09 16:09 16:09 WBC 6.9 (3.8-10.6) k/uL RBC 5.79 (4.30-5.90) m/uL Hgb 15.4 (13.0-17.5) gm/dL Hct 46.7 (39.0-53.0) % MCV 80.6 (80.0-100.0) fL MCH 26.5 (25.0-35.0) pg MCHC 32.9 (31.0-37.0) g/dL RDW 14.3 (11.5-15.5) % Plt Count 189 (150-450) k/uL MPV 8.4 Neutrophils % 61 % Lymphocytes % 21 % Monocytes % 8 % Eosinophils % 6 % Basophils % 1 % Neutrophils # 4.2 (1.3-7.7) k/uL Lymphocytes # 1.5 (1.0-4.8) k/uL Monocytes # 0.6 (0-1.0) k/uL Eosinophils # 0.4 (0-0.7) k/uL Basophils # 0.1 (0-0.2) k/uL Sodium 135 L (137-145) mmol/L Potassium 4.4 (3.5-5.1) mmol/L Chloride 107 (98-107) mmol/L Carbon Dioxide 21 L (22-30) mmol/L Anion Gap 7 mmol/L BUN 17 (9-20) mg/dL Creatinine 0.69 (0.66-1.25) mg/dL Est GFR (CKD-EPI)AfAm >90 (>60 ml/min/1.73 sqM) Est GFR (CKD-EPI)NonAf >90 (>60 ml/min/1.73 sqM) Glucose 110 H (74-99) mg/dL Plasma Lactic Acid Baron 0.9 (0.7-2.0) mmol/L Calcium 9.0 (8.4-10.2) mg/dL Total Bilirubin 0.6 (0.2-1.3) mg/dL AST 24 (17-59) U/L ALT 36 (4-49) U/L Alkaline Phosphatase 75 (38-126) U/L Troponin I (0.000-0.034) ng/mL Total Protein 7.4 (6.3-8.2) g/dL Albumin 4.2 (3.5-5.0) g/dL Amylase 71 (30-110) U/L Lipase 97 (23-300) U/L 09/12/22 Range/Units 17:43 WBC (3.8-10.6) k/uL RBC (4.30-5.90) m/uL Hgb (13.0-17.5) gm/dL Hct (39.0-53.0) % MCV (80.0-100.0) fL MCH (25.0-35.0) pg MCHC (31.0-37.0) g/dL RDW (11.5-15.5) % Plt Count (150-450) k/uL MPV Neutrophils % % Lymphocytes % % Monocytes % % Eosinophils % % Basophils % % Neutrophils # (1.3-7.7) k/uL Lymphocytes # (1.0-4.8) k/uL Monocytes # (0-1.0) k/uL Eosinophils # (0-0.7) k/uL Basophils # (0-0.2) k/uL Sodium (137-145) mmol/L Potassium (3.5-5.1) mmol/L Chloride (98-107) mmol/L Carbon Dioxide (22-30) mmol/L Anion Gap mmol/L BUN (9-20) mg/dL Creatinine (0.66-1.25) mg/dL Est GFR (CKD-EPI)AfAm (>60 ml/min/1.73 sqM) Est GFR (CKD-EPI)NonAf (>60 ml/min/1.73 sqM) Glucose (74-99) mg/dL Plasma Lactic Acid Baron (0.7-2.0) mmol/L Calcium (8.4-10.2) mg/dL Total Bilirubin (0.2-1.3) mg/dL AST (17-59) U/L ALT (4-49) U/L Alkaline Phosphatase (38-126) U/L Troponin I <0.012 (0.000-0.034) ng/mL Total Protein (6.3-8.2) g/dL Albumin (3.5-5.0) g/dL Amylase (30-110) U/L Lipase (23-300) U/L Disposition <Leonardo Farah - Last Filed: 09/12/22 15:08> Is patient prescribed a controlled substance at d/c from ED?: No Time of Disposition: 19:33 <Chayo Cordero - Last Filed: 09/12/22 23:48> Clinical Impression: Abdominal pain Disposition: HOME SELF-CARE Condition: Fair Instructions (If sedation given, give patient instructions): Abdominal Pain (ED) Additional Instructions: Follow-up at the bariatric office tomorrow morning, call the office in the morning to arrange your arrival time. Report back to ER with any new or worsening symptoms. Take medication as prescribed. Prescriptions: Omeprazole 20 mg PO DAILY #10 tab Referrals: Gonzalez Carmichael Jr, [Primary Care Provider] - 1-2 days Ted Castro MD [Medical Doctor] - 1-2 days
[2022-09-12 16:26] LABS: Basophils # (A) 0.1 k/uL (0-0.2); Basophils % (A) 1 %; Eosinophils # (A) 0.4 k/uL (0-0.7); Eosinophils % (A) 6 %; HCT 46.7 % (39.0-53.0); HGB 15.4 gm/dL (13.0-17.5); Lymphocytes # (A) 1.5 k/uL (1.0-4.8); Lymphocytes % (A) 21 %; MCH 26.5 pg (25.0-35.0); MCHC 32.9 g/dL (31.0-37.0); MCV 80.6 fL (80.0-100.0); Mean Platelet Volume 8.4; Monocytes # (A) 0.6 k/uL (0-1.0); Monocytes % (A) 8 %; Neutrophils # (A) 4.2 k/uL (1.3-7.7); Neutrophils % (A) 61 %; Platelet Count 189 k/uL (150-450); RBC 5.79 m/uL (4.30-5.90); RDW 14.3 % (11.5-15.5); WBC 6.9 k/uL (3.8-10.6)
[2022-09-12 16:45] LABS: ALT 36 U/L (4-49); AST 24 U/L (17-59); African American GFR (CKD) >90 (>60 ml/min/1.73 sqM); Albumin 4.2 g/dL (3.5-5.0); Alkaline Phosphatase 75 U/L (38-126); Amylase 71 U/L (30-110); Anion Gap 7 mmol/L; Blood Urea Nitrogen 17 mg/dL (9-20); Carbon Dioxide 21 mmol/L (22-30); Chloride 107 mmol/L (98-107); Glucose 110 mg/dL (74-99); Lipase 97 U/L (23-300); Non-African American GFR(CKD) >90 (>60 ml/min/1.73 sqM); Potassium 4.4 mmol/L (3.5-5.1); Sodium 135 mmol/L (137-145); Total Bilirubin 0.6 mg/dL (0.2-1.3); Total Protein 7.4 g/dL (6.3-8.2)
[2022-09-12] MEDS ORDERED: ONDANSETRON 4 MG/2 ML VIAL IVP STA (17:06)
[2022-09-12] MEDS ORDERED: MORPHINE SULFATE 4 MG/ML SYRINGE IVP STA (17:06)
--- NOTE | 2022-09-12 18:31 | CT ---
EXAMINATION TYPE: CT abdomen pelvis w con DATE OF EXAM: 09/12/2022 COMPARISON: None HISTORY: abd pain CT DLP: 2764.1 mGycm CONTRAST: CT scan of the abdomen and pelvis is performed with Oral Contrast and with IV Contrast, patient injec debi with 80 mL of Isovue 300. FINDINGS: LUNG BASES-: No visible nodule. No infiltrate. LIVER/GB: No calcified gallstones. No space occupying hepatic lesion. Biliary tree is of normal ca liber. PANCREAS: No inflammation. No distinct mass. SPLEEN: No splenic enlargement. No lesion seen. ADRENALS: No nodule. No thickening. KIDNEYS/BLADDER: No hydronephrosis. No nephrolithiasis. No distinct renal mass. Urinary bladder g rossly unremarkable. BOWEL: Postoperative changes of gastric banding procedure. Normal appendix. Normal bowel caliber. N o inflammation. GENITAL ORGANS: No gross abnormality. LYMPH NODES: No greater than 1cm abdominal or pelvic lymph nodes are appreciated. AORTA: No significant abnormality. OSSEOUS STRUCTURES: No significant abnormality is seen. OTHER: No significant additional abnormality is seen. IMPRESSION: 1. No acute intra-abdominal process to account for the patient's symptoms.
[2022-09-12 18:39] VITALS: BP 140/94; PULSE 86; RESP 18
[2022-09-12] MEDS ORDERED: HYDROmorphone 1 MG/ML 1 ML SYRINGE IVP STA (18:47)
[2022-09-12] MEDS ORDERED: ONDANSETRON 4 MG ODT STARTER PACK 2 TAB BTL PO STA (19:33)
[2022-09-12] MEDS ORDERED: traMADol 50 MG STARTER PACK 3 TAB BTL PO STA (19:33)
== END 2022-09-12 20:45 | disposition home or self-care (01) ==
LOC: EC 14:51
DX: R10.12 Left upper quadrant pain (principal); I10 Essential (primary) hypertension; E07.9 Disorder of thyroid, unspecified; F41.9 Anxiety disorder, unspecified; Z79.890 Hormone replacement therapy; Z79.899 Other long term (current) drug therapy
CPT/HCPCS: 93005; 80053; 82150; 83605; 83690; 84484; 85025; 74177; 99284; 96374; 96375 ×2; J2270; J2405; J1170; S0119; Q9967; 36415

== ENCOUNTER → 2022-10-02 | Outpatient (CLI) | payer OTHER ==
[2022-10-02 14:17] VITALS: BP 129/87; PULSE 117; TEMP 98.4; BMI 46.4
--- NOTE | 2022-10-31 12:26 | P.HPBAR ---
Bariatric H&P - History & Physicial H&P Date: 10/02/22 History & Physicial: Visit/CC: lap band removal F/U Patient initial contact: Initial weight: Initial weight in pounds: Height: 6 ft Initial BMI: Last weight: Current weight: 155.355 kg Current weight in pounds: 342.50 Current BMI: 46.4 Abie body weight (based on NIH guidelines): 80.739 kg Excess body weight loss: The patient is a 47 year-old M who presents for Bariatric Assessment. Patient presents today for follow-up. Patient has had LAP-BAND. Previously removed. Patient states that his abdominal pain and dysphagia have resolved. His BMI is 47 Past Medical History Past Medical History: GI Bleed, Hyperlipidemia, Hypertension, Thyroid Disorder Additional Past Medical History / Comment(s): PUD, hypothyroid. History of Any Multi-Drug Resistant Organisms: None Reported Past Surgical History: Bariatric Surgery Additional Past Surgical History / Comment(s): EGD, lap band with replacement, lap band removed 2022 Past Anesthesia/Blood Transfusion Reactions: No Reported Reaction Additional Past Anesthesia/Blood Transfusion Reaction / Comm: Pt received blood in past (d/t ulcer) without reaction Past Psychological History: Anxiety Additional Psychological History / Comment(s): Pt reside with his spouse and 4 children. He is independent. He works at [employer] on midnights in [employer]. Smoking Status: Never smoker Past Alcohol Use History: None Reported Past Drug Use History: None Reported - Past Family History Father Family Medical History: Coronary Artery Disease (CAD) Additional Family Medical History / Comment(s): Father had cardiac stents. Pt's paternal uncle also has cardiac stents. Mother Family Medical History: COPD Brother(s) Family Medical History: Myocardial Infarction ([place]) Additional Family Medical History / Comment(s): Brother recently had a [place] at the age of 48yrs. Surgical - Exam Vital Signs Temp Pulse BP 98.4 F 117 H 129/87 10/02/22 14:12 10/02/22 14:12 10/02/22 14:12 - General well developed, well nourished, moderate distress - Neck no masses - Respiratory normal expansion - Abdomen Abdomen: soft, non tender Bariatric Assessment & Plan Plan: Status post removal of LAP-BAND system. Patient will be observed. He is morbidly obese. He'll follow-up in 3-4 months. Bariatric Checklist Checklist: Plan: Checklist: EGD: 1. Hiatal hernia: 2. H. Pylori: HgbA1c: Vitamin D: Smoking: Never smoker Primary care physician referral: Dr. Carmichael Psychiatry clearance: Cardiology clearance: Sleep study: Diet journal: VTE risk score: VTE risk level: Rehab needs at discharge:
== END ==
LOC: BARWHC3 14:05
PROVIDERS: ATTEND Surgery
DX: E66.01 Morbid (severe) obesity due to excess calories (principal); K92.2 Gastrointestinal hemorrhage, unspecified; E78.5 Hyperlipidemia, unspecified; I10 Essential (primary) hypertension; E07.9 Disorder of thyroid, unspecified; Z68.42 Body mass index [BMI] 45.0-49.9, adult
CPT/HCPCS: 99211

== ENCOUNTER 2023-11-23 00:12 | Emergency (ER) | payer OTHER ==
--- NOTE | 2023-11-23 00:34 | ED ---
General Adult HPI - General Chief complaint: Chest Pain Stated complaint: SOB dizzy chest pain Time Seen by Provider: 11/23/23 00:17 Source: patient, RN notes reviewed, old records reviewed Mode of arrival: ambulatory Limitations: no limitations - History of Present Illness Initial comments: 48-year-old male history of hypertension, remote history of GI bleed presenting with lightheadedness, dizziness, upper chest discomfort. Patient was at work this evening when he began feeling the symptoms. He has no prior history of CAD. He denies any preceding symptoms. He states that he has had several episodes of black stool over the past several days. He has remote history of GI bleed. Denies fever. Reports minimal cough. No vomiting. No abdominal pain. - Related Data Home Medications Medication Instructions Recorded Confirmed Sertraline [Zoloft] 75 mg PO DAILY 11/20/18 10/02/22 lisinopriL [Zestril] 10 mg PO DAILY 11/20/18 10/02/22 Atorvastatin Calcium 20 mg PO HS 09/12/22 10/02/22 Levothyroxine Sodium [Synthroid] 150 mcg PO AC-[id number] 09/12/22 10/02/22 Meloxicam [Mobic] 7.5 mg PO HS 09/12/22 10/02/22 Previous Rx's Medication Instructions Recorded Omeprazole 20 mg PO DAILY #10 tab 09/12/22 Allergies Allergy/AdvReac Type Severity Reaction Status Date / Time No Known Allergies Allergy Verified 11/23/23 00:14 Review of Systems ROS Statement: Those systems with pertinent positive or pertinent negative responses have been documented in the HPI. ROS Other: All systems not noted in ROS Statement are negative. Past Medical History Past Medical History: GI Bleed, Hyperlipidemia, Hypertension, Thyroid Disorder Additional Past Medical History / Comment(s): PUD, hypothyroid. History of Any Multi-Drug Resistant Organisms: None Reported Past Surgical History: Bariatric Surgery Additional Past Surgical History / Comment(s): EGD, lap band with replacement, lap band removed 2022 Past Anesthesia/Blood Transfusion Reactions: No Reported Reaction Additional Past Anesthesia/Blood Transfusion Reaction / Comment(s): Pt received blood in past (d/t ulcer) without reaction Past Psychological History: Anxiety Smoking Status: Never smoker Past Alcohol Use History: None Reported Past Drug Use History: None Reported - Past Family History Father Family Medical History: Coronary Artery Disease (CAD) Additional Family Medical History / Comment(s): Father had cardiac stents. Pt's paternal uncle also has cardiac stents. Mother Family Medical History: COPD Brother(s) Family Medical History: Myocardial Infarction (IL) Additional Family Medical History / Comment(s): Brother recently had a IL at the age of 48yrs. General Exam Limitations: no limitations General appearance: alert Head exam: Present: atraumatic, normocephalic Eye exam: Present: normal appearance, PERRL ENT exam: Present: normal exam Neck exam: Present: normal inspection. Absent: tenderness, meningismus Respiratory exam: Present: normal lung sounds bilaterally. Absent: respiratory distress, wheezes Cardiovascular Exam: Present: normal rhythm, tachycardia GI/Abdominal exam: Present: soft. Absent: distended, tenderness, guarding, rebound Extremities exam: Present: normal inspection, normal capillary refill. Absent: calf tenderness Neurological exam: Present: alert, oriented X3, CN II-XII intact. Absent: motor sensory deficit Psychiatric exam: Present: anxious Skin exam: Present: diaphoretic Course Vital Signs 11/23/23 11/23/23 11/23/23 00:14 00:34 01:28 Temperature 97.4 F L Pulse Rate 135 H 109 H 108 H Respiratory 20 18 18 Rate Blood Pressure 111/72 105/68 102/50 O2 Sat by Pulse 97 97 96 Oximetry Medical Decision Making - Medical Decision Making Was pt. sent in by a medical professional or institution (, PA, APPRENTICESHIP REPRESENTATIVE, urgent care, hospital, or [facility]...) When possible be specific @ -No Did you speak to anyone other than the patient for history (EMS, parent, family, police, friend...)? What history was obtained from this source @ -No Did you review nursing and triage notes (agree or disagree)? Why? @ -I reviewed and agree with nursing and triage notes Were old charts reviewed (outside hosp., previous admission, EMS record, old EKG, old radiological studies, urgent care reports/EKG's, [facility] records)? Report findings @ -No old charts were reviewed Differential Diagnosis Differential GI Bleed: Esophageal varices, aortoenteric fistula, Mai-Farooq, gastritis, peptic ulcer disease, diverticulosis, inflammatory bowel disease, hemorrhoids, fissure, colitis, malignancy, Meckels diverticulum, this is not meant to be an all- inclusive list. @ -[Differential Chest Pain: Stable Angina, Unstable Angina, STEMI, NSTEMI Aortic Dissection, Pneumothorax, Musculoskeletal, Esophageal Spasm GERD, Cholecystitis, Pancreatitis, Zoster, this is not meant to be an all-inclusive list. EKG interpreted by me (3pts min.). @Sinus tachycardia with PVC rate of 116, IA interval 153, QRS duration 96, QTc 383 similar QRS morphology compared to previous EKG. No ST segment elevation. X-rays interpreted by me (1pt min.). @chest x-ray negative for acute cardiopulmonary findings CT interpreted by me (1pt min.). @ -None done U/S interpreted by me (1pt. min.). @ -None done What testing was considered but not performed or refused? (CT, X-rays, U/S, labs)? Why? @ -None What meds were considered but not given or refused? Why? @ -None Did you discuss the management of the patient with other professionals (professionals i.e. , PA, APPRENTICESHIP REPRESENTATIVE, lab, RT, psych nurse, social science teacher, natural resources instructor, teacher, retirement officer, director case)? Give summary @ -Carrington Reeves regarding transfer. Was smoking cessation discussed for >3mins.? @ -No Was critical care preformed (if so, how long)? @Yes, 35 minutes Were there social determinants of health that impacted care today? How? (Homelessness, low income, unemployed, alcoholism, drug addiction, tr ansportation, low edu. Level, literacy, decrease access to med. care, shelter, rehab)? @ -No Was there de-escalation of care discussed even if they declined (Discuss DNR or withdrawal of care, Hospice)? DNR status @ -No What co-morbidities impacted this encounter? (DM, HTN, Smoking, COPD, CAD, Cancer, CVA, ARF, Chemo, Hep., AIDS, mental health diagnosis, sleep apnea, morbid obesity)? @ -hypertension, history of previous GI bleed Was patient admitted / discharged? Hospital course, mention meds given and route, prescriptions, significant lab abnormalities, going to OR and other pertinent info. @ -48-year-old male presenting with lightheadedness, chest discomfort, melanotic stool. History of GI bleed. EKG is sinus tach without ST segment changes. Patient has hemoglobin of 12.3 with a baseline of 14. His BUN is elevated. Stool is occult positive. Patient is given 80 mg of Protonix in the emergency department. I suspect an upper GI bleed at this time. This institution does not currently have gastroenterology and will transfer to [facility], accepting physician Dr. Fox. Undiagnosed new problem with uncertain prognosis? @ -No Drug Therapy requiring intensive monitoring for toxicity (Heparin, Nitro, Insulin, Cardizem)? @ -No Were any procedures done? @ -No Diagnosis/symptom? @ -GI bleed Acute, or Chronic, or Acute on Chronic? @ -[Acute Uncomplicated (without systemic symptoms) or Complicated (systemic symptoms)? @ -Default Side effects of treatment? @ -No Exacerbation, Progression, or Severe Exacerbation? @ -No Poses a threat to life or bodily function? How? (Chest pain, USA, IL, pneumonia, PE, COPD, DKA, ARF, appy, cholecystitis, CVA, Diverticulitis, Homicidal, Suicidal, threat to staff... and all critical care pts) @ -Yes, hemorrhagic shock - Lab Data Result diagrams: 11/23/23 00:30 11/23/23 00:30 Lab Results 11/23/23 11/23/23 11/23/23 Range/Units 00:30 00:30 00:30 WBC 9.6 (3.8-10.6) k/uL RBC 4.86 (4.30-5.90) m/uL Hgb 12.3 L (13.0-17.5) gm/dL Hct 39.3 (39.0-53.0) % MCV 80.8 (80.0-100.0) fL MCH 25.4 (25.0-35.0) pg MCHC 31.4 (31.0-37.0) g/dL RDW 15.8 H (11.5-15.5) % Plt Count 206 (150-450) k/uL MPV 9.5 Neutrophils % 63 % Lymphocytes % 24 % Monocytes % 6 % Eosinophils % 4 % Basophils % 1 % Neutrophils # 6.0 (1.3-7.7) k/uL Lymphocytes # 2.3 (1.0-4.8) k/uL Monocytes # 0.6 (0-1.0) k/uL Eosinophils # 0.4 (0-0.7) k/uL Basophils # 0.0 (0-0.2) k/uL PT 10.9 (10.0-12.5) sec INR 1.0 (<1.2) APTT 23.9 (22.0-30.0) sec Sodium 139 (137-145) mmol/L Potassium 4.6 (3.5-5.1) mmol/L Chloride 110 H (98-107) mmol/L Carbon Dioxide 21 L (22-30) mmol/L Anion Gap 8 mmol/L BUN 49 H (9-20) mg/dL Creatinine 0.99 (0.66-1.25) mg/dL Est GFR (CKD-EPI)AfAm >90 (>60 ml/min/1.73 sqM) Est GFR (CKD-EPI)NonAf 88 (>60 ml/min/1.73 sqM) Glucose 169 H (74-99) mg/dL Calcium 8.8 (8.4-10.2) mg/dL Magnesium 1.6 (1.6-2.3) mg/dL Total Bilirubin 0.6 (0.2-1.3) mg/dL AST 22 (17-59) U/L ALT 34 (4-49) U/L Alkaline Phosphatase 79 (38-126) U/L Troponin I (0.000-0.034) ng/mL Total Protein 6.4 (6.3-8.2) g/dL Albumin 3.3 L (3.5-5.0) g/dL Stool Occult Blood (Negative) 11/23/23 11/23/23 Range/Units 00:30 01:01 WBC (3.8-10.6) k/uL RBC (4.30-5.90) m/uL Hgb (13.0-17.5) gm/dL Hct (39.0-53.0) % MCV (80.0-100.0) fL MCH (25.0-35.0) pg MCHC (31.0-37.0) g/dL RDW (11.5-15.5) % Plt Count (150-450) k/uL MPV Neutrophils % % Lymphocytes % % Monocytes % % Eosinophils % % Basophils % % Neutrophils # (1.3-7.7) k/uL Lymphocytes # (1.0-4.8) k/uL Monocytes # (0-1.0) k/uL Eosinophils # (0-0.7) k/uL Basophils # (0-0.2) k/uL PT (10.0-12.5) sec INR (<1.2) APTT (22.0-30.0) sec Sodium (137-145) mmol/L Potassium (3.5-5.1) mmol/L Chloride (98-107) mmol/L Carbon Dioxide (22-30) mmol/L Anion Gap mmol/L BUN (9-20) mg/dL Creatinine (0.66-1.25) mg/dL Est GFR (CKD-EPI)AfAm (>60 ml/min/1.73 sqM) Est GFR (CKD-EPI)NonAf (>60 ml/min/1.73 sqM) Glucose (74-99) mg/dL Calcium (8.4-10.2) mg/dL Magnesium (1.6-2.3) mg/dL Total Bilirubin (0.2-1.3) mg/dL AST (17-59) U/L ALT (4-49) U/L Alkaline Phosphatase (38-126) U/L Troponin I <0.012 (0.000-0.034) ng/mL Total Protein (6.3-8.2) g/dL Albumin (3.5-5.0) g/dL Stool Occult Blood Positive (Negative) Critical Care Time Critical Care Time: Yes Total Critical Care Time: 35 Disposition Clinical Impression: Chest pain, Upper GI bleed Disposition: OTHER INSTITUTION NOT DEFINED Condition: Stable Is patient prescribed a controlled substance at d/c from ED?: No Referrals: Gonzalez Carmichael Jr, [Primary Care Provider] - 1-2 days Time of Disposition: 01:42 - Out of Hospital Transfer - Req. Specs Out of Hospital Transfer - Requested Specifics: Other Emergency Center (Transfer to [facility])
[2023-11-23] MEDS: PANTOPRAZOLE 40 MG/10 ML VIAL IVP STA ×2 (00:38→01:23)
[2023-11-23 01:12] LABS: ALT 34 U/L (4-49); AST 22 U/L (17-59); African American GFR (CKD) >90 (>60 ml/min/1.73 sqM); Albumin 3.3 g/dL (3.5-5.0); Alkaline Phosphatase 79 U/L (38-126); Anion Gap 8 mmol/L; Blood Urea Nitrogen 49 mg/dL (9-20); Calcium 8.8 mg/dL (8.4-10.2); Carbon Dioxide 21 mmol/L (22-30); Chloride 110 mmol/L (98-107); Glucose 169 mg/dL (74-99); Magnesium 1.6 mg/dL (1.6-2.3); Non-African American GFR(CKD) 88 (>60 ml/min/1.73 sqM); Potassium 4.6 mmol/L (3.5-5.1); Sodium 139 mmol/L (137-145); Total Bilirubin 0.6 mg/dL (0.2-1.3); Total Protein 6.4 g/dL (6.3-8.2)
[2023-11-23 01:15] LABS: Basophils % (A) 1 %; Eosinophils # (A) 0.4 k/uL (0-0.7); Eosinophils % (A) 4 %; HCT 39.3 % (39.0-53.0); HGB 12.3 gm/dL (13.0-17.5); Lymphocytes # (A) 2.3 k/uL (1.0-4.8); Lymphocytes % (A) 24 %; MCH 25.4 pg (25.0-35.0); MCHC 31.4 g/dL (31.0-37.0); MCV 80.8 fL (80.0-100.0); Mean Platelet Volume 9.5; Monocytes # (A) 0.6 k/uL (0-1.0); Monocytes % (A) 6 %; Neutrophils % (A) 63 %; Platelet Count 206 k/uL (150-450); RBC 4.86 m/uL (4.30-5.90); RDW 15.8 % (11.5-15.5); WBC 9.6 k/uL (3.8-10.6)
[2023-11-23 01:20] LABS: Partial Thromboplastin Time 23.9 sec (22.0-30.0); Prothrombin Time 10.9 sec (10.0-12.5)
[2023-11-23] MEDS: SODIUM CHLORIDE 0.9% 500 ML 500 ML IV ONE (01:23)
--- NOTE | 2023-11-23 01:31 | XR ---
EXAM: XR Chest, 1 View CLINICAL HISTORY: ITS.REASON XR Reason: chest pain TECHNIQUE: Frontal view of the chest. COMPARISON: No relevant prior studies available. FINDINGS: Lungs: No consolidation or mass. Pleural space: No acute findings Heart: cardiomegaly. Bones/joints: No acute findings. IMPRESSION: No acute cardiopulmonary process.
[2023-11-23 02:40] VITALS: BP 133/69; PULSE 100; RESP 18
[2023-11-23 02:41] VITALS: TEMP 97.6
== END 2023-11-23 02:13 | disposition other institution (70) ==
LOC: EC 00:12
DX: R07.89 Other chest pain (principal); K92.2 Gastrointestinal hemorrhage, unspecified; R79.89 Other specified abnormal findings of blood chemistry; R00.0 Tachycardia, unspecified
CPT/HCPCS: 96374; 96376; 96361; 36415; 93005; 86900; 86901; 80053; 83735; 84484; 85025; 85610; 85730; 86850; 82272; 71045; 99291; C9113